=== PATIENT | female | born 1980 | race Caucasian/White ===

== ENCOUNTER 2022-06-11 19:15 | Emergency (ER) | payer SELFPAY ==
[~2022-06-11] VITALS: Ht 154.9 cm; Wt 63.5 kg
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
[2022-06-11] MEDS ORDERED: KETOROLAC TROMETHAMINE INJ 30 MG/ML VIAL ONE (21:00)
[2022-06-11] MEDS ORDERED: KETOROLAC TROMETHAMINE INJ 60 MG/2 ML VIAL IM ONE (21:00)
[2022-06-11] MEDS ORDERED: NAPR-1009 PO (21:06)
[2022-06-11 21:14] VITALS: BP 121/68
--- NOTE | 2022-06-11 21:14 | NUR ---
Patient discharged to home in stable condition. Written and verbal after care instructions given. Patient verbalizes understanding of instruction.
== END 2022-06-11 21:20 | disposition home or self-care (01) ==
LOC: ER 20:02
DX: S16.1XXA Strain of muscle, fascia and tendon at neck level, initial encounter (principal); S40.022A Contusion of left upper arm, initial encounter; S20.211A Contusion of right front wall of thorax, initial encounter; Z98.890 Other specified postprocedural states; V49.59XA Passenger injured in collision with other motor vehicles in traffic accident, initial encounter; Y93.89 Activity, other specified; Y92.89 Other specified places as the place of occurrence of the external cause; Y99.8 Other external cause status
CPT/HCPCS: 99283; 96372; J1885